=== PATIENT | male | born 1970 ===

== ENCOUNTER 2017-11-08 14:36 | Emergency (ER) | payer OTHER ==
[2017-11-08] MEDS ORDERED: LIDOcaine 1.5% w/epinephrine 1:200,000 5ml ampul IJ ONE ×2 (15:05→15:15)
[2017-11-08] MEDS ORDERED: TETanus/Pertussis (Acell)/Diphther VAC/PF (Tdap-Adult) 0.5ml syringe IM ONE (15:05)
[2017-11-08 15:48] VITALS: BP 145/86
[2017-11-08] MEDS ORDERED: AMOX-422 PO (16:29)
[2017-11-08] MEDS ORDERED: amox tr/potassium clavulanate 875/125mg TAB PO ONE (16:30)
== END 2017-11-08 17:16 ==
LOC: ER 14:38
DX: S51.812A Laceration without foreign body of left forearm, initial encounter (principal); W54.0XXA Bitten by dog, initial encounter; Y93.89 Activity, other specified; Y92.89 Other specified places as the place of occurrence of the external cause; Y99.8 Other external cause status; Z60.2 Problems related to living alone; Z59.0 Homelessness; Z79.899 Other long term (current) drug therapy
CPT/HCPCS: 12002; 73090; 90471; 90715; 99284; A6223; A6449; J3490